=== PATIENT | male | born 1995 | race Caucasian/White ===

== ENCOUNTER 2017-07-11 23:08 | Emergency (ER) | payer OTHER ==
[2017-07-11 23:13] VITALS: O2SAT 98
--- NOTE | 2017-07-11 23:45 | EDPHY ---
General - History Smoking Status: Never smoked Narrative: CHIEF COMPLAINT: Left knee injury and pain HISTORY OF PRESENT ILLNESS: Patient complains of left knee pain. This started around 8:00 p.m.. He was playing football with some friends. He says he stepped awkwardly on the knee. He does not exactly know what happened to the knee, but since then he has had significant pain. Difficulty ambulating due to this. The pain is isolated to the medial joint line. Some paresthesia surrounding the injury. No paresthesia or anesthesia distally. No injury to the ipsilateral foot, heel or hip. No direct trauma. No laceration or puncture. History of sprain in this knee last year that required physical therapy. No other associated complaints or modifying factors. ESTABLISHED ORTHOPEDIST: None currently REVIEW OF SYSTEMS: Ten systems reviewed and are negative unless otherwise noted in the HPI PAST MEDICAL HISTORY: Insulin-dependent diabetic on pump PAST SURGICAL HISTORY: None SOCIAL HISTORY: Nonsmoker. 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 Originally from [place], [place] FAMILY HISTORY: Noncontributory EXAMINATION General Appearance: Alert, no distress Cardiovascular: Pulses normal throughout. Symmetric DP pulses 2+. Symmetric PT pulses 2+. Brisk cap refill Neurological: A&O, light sensation intact in the top of the feet. Ankle strength symmetric. No footdrop. Skin: Warm and dry, no rash. No lacerations. No abrasions. No contusions. Extremities: Tenderness over the left medial joint line of the knee. No crepitus. No patellar tenderness. Special test not performed due to pain. He is able to flex and extend the knee but without full extension. Neurovascular intact distally. DIFFERENTIAL DIAGNOSES: Including but not limited to tibial plateau fracture, sprain, strain, fibular fracture, patellar fracture MDM: 11:30 p.m. Acute left knee pain after an injury playing football this evening around 8:00 p.m.. Neuro intact distally with complains of paresthesia around the proximal fibular head. Difficulty with full extension of the knee. X-ray is pending. 11:45 p.m. X-ray as read by me reveals no obvious fracture dislocation. There may be a subtle tibial plateau depression. I will await the radiologist's interpretation. 11:50 p.m. I have read the x-ray with Dr. Pruett. We do not appreciate any acute findings. I have re-examined the patient. I have considered a knee immobilizer but this may be too painful for the patient. 11:56 p.m. X-ray has been read as negative by the radiologist. I have re-evaluated the patient and the knee immobilizer is too painful for him. Will take this off and put him in a Vaibhav wrap. He brought his own crutches. I recommend that he use these as needed. He is neuro intact distally. We discussed over-the- counter anti-inflammatories. We discussed outpatient follow-up with Orthopedics. Patient's mother is now bedside. I have answered all their questions. He is discharged home stable condition. ED Precautions: Worsening pain. Erythema, edema, cyanosis, pallor, paresthesia or anesthesia. (Rex Regalado) PHYSICIAN DOCUMENTATION: The patient was evaluated and managed by the Physician Retail Services Professional. My co- signature indicates that I have reviewed this chart and I agree with the findings and plan of care as documented. I am the secondary supervising physician. (Toña Pruett) - Diagnostics Imaging Results: Imaging Impressions Knee X-Ray 07/11/17 23:21 Impression: No definite fracture or joint effusion of the left knee. - Objective Vital Signs: Initial Vital Signs Temperature (C) 36.7 C 07/11/17 23:10 Heart Rate 91 07/11/17 23:10 Respiratory Rate 16 07/11/17 23:10 Blood Pressure 122/75 H 07/11/17 23:10 O2 Sat (%) 98 07/11/17 23:10 O2 Delivery Mode Room Air Allergies/Adverse Reactions: Penicillins Allergy (Verified 07/11/17 23:13) Home Medications: Medication Instructions Recorded Insulin Regular, Human 07/11/17 Hydrocodone/APAP 5/325 [West 1 - 2 tab PO Q4H PRN #13 tab 07/12/17 5/325 (*)] Departure - Departure Disposition: Home, Routine, Self-Care Clinical Impression: Left knee sprain Qualifiers: Encounter type: initial encounter Involved ligament of knee: unspecified ligament Qualified Code(s): S83.92XA - Sprain of unspecified site of left knee, initial encounter Condition: Good Instructions: Knee Sprain (ED) Additional Instructions: 1. Weightbearing as tolerated with light activity 2. [id number] anti-inflammatories as needed 3. Contact the on-call orthopedist as discussed 4. ED precautions as discussed Referrals: Shiv Durbin MD [Medical Doctor] - As per Instructions Prescriptions: Hydrocodone/APAP 5/325 [West 5/325 (*)] 1 - 2 tab PO Q4H PRN #13 tab PRN Reason: Pain, Moderate
[2017-07-12 00:32] VITALS: BP 129/66; PULSE 87; RESP 95; TEMP 97.9
== END 2017-07-12 00:31 | disposition home or self-care (01) ==
DX: S83.92XA Sprain of unspecified site of left knee, initial encounter (principal); E11.9 Type 2 diabetes mellitus without complications; Z79.4 Long term (current) use of insulin; X58.XXXA Exposure to other specified factors, initial encounter; Y99.8 Other external cause status; Y93.61 Activity, american tackle football

== ENCOUNTER 2017-09-08 20:13 | Emergency (ER) | payer OTHER ==
--- NOTE | 2017-09-08 21:16 | EDPHY ---
H & P Time Seen by Provider: 09/08/17 21:06 HPI/ROS: CHIEF COMPLAINT: The left leg pain HISTORY OF PRESENT ILLNESS: Slightly 22-year-old diabetic head ACL surgery done by Dr. Gillespie from [facility] medicine 1 week ago, presents with left knee swelling and pain in the proximal lower leg. Patient was doing well over the last 24 hr developed pain just distal to the knee with some swelling and bruising medially. No fever but had some subjective chills. No drainage from the wound. No proximal redness. REVIEW OF SYSTEMS: Eye: no change in vision ENT: no sore throat Cardiac: no chest pain or syncope Pulmonary: no cough or SOB Abdomen: no vomiting, diarrhea, abdominal pain Musculoskeletal: HPI Skin: HPI Neuro: no headache Constitutional: no fever but has felt a little bit chilled last couple days : no urinary symptoms A comprehensive 10 point review of systems is otherwise negative aside from elements mentioned in the history of present illness. PAST MEDICAL HISTORY: Insulin-dependent diabetes Social history: Here with his mother General Appearance: Alert and conversant, cooperative. Eyes: No scleral icterus. ENT, Mouth: Normal mucous membranes. Respiratory: Normal respiratory effort, breath sounds equal, lungs are clear to auscultation. Cardiovascular: Regular rate and rhythm. Gastrointestinal: Abdomen is soft and non tender. Neurological: Alert, face symmetric, normal motor and sensory in extremities. Skin: Patient has Steri-Strips but no drainage from the wound and no dehiscence. He has bruising around the surgery site as well as medially on the proximal lower leg. There is swelling around the entire knee but compartments of the thigh and lower leg are soft. Normal pulse and sensation in the foot on the left side and I can flex and extend his ankle without pain. Musculoskeletal: Swelling as documented just above. Psychiatric: Not agitated. Emergency Department course/MDM: Plan CBC sedimentation rate and CRP, ultrasound of the left leg to evaluate for DVT. Patient is afebrile. His leg is not warm to the touch and he does not have pus from the wound or proximal lymphangitis on examination. My suspicion for acute infection is low at this time. 2155: US negative for DVT per Asya. Results discussed with patient and parent at this time. 5: My desk EMT called the patient's surgical practice and was initially told they would not call the patient's surgeon or cognos consultant provider, even though they were informed 1 of their patients was in the emergency department. 2234: Phone discussion with Dr. Mazariegos for [facility], discussed full evaluation including database, recommends that we discharge him, no other diagnostics or therapeutics, will have him followup in clinic tomorrow. Smoking Status: Never smoked Constitutional: Initial Vital Signs Temperature (C) 36.8 C 09/08/17 20:17 Heart Rate 91 09/08/17 20:17 Respiratory Rate 18 09/08/17 20:17 Blood Pressure 132/65 H 09/08/17 20:17 O2 Sat (%) 96 09/08/17 20:17 O2 Delivery Mode Room Air Allergies/Adverse Reactions: amoxicillin Allergy (Verified 09/08/17 20:21) Penicillins Allergy (Verified 09/08/17 20:21) Home Medications: Medication Instructions Recorded Insulin Regular, Human 07/11/17 oxyCODONE CR 09/08/17 Medical Decision Making - Diagnostics Imaging Results: Imaging Impressions Extremity Venous Study 09/08/17 21:15 Impression: No sonographic evidence of deep vein thrombosis in the left lower extremity. Dr. Sky discussed these findings by telephone with JAYLIN PEREZ on 09/08/2017 at 21:56 hours. Differential Diagnosis: Differential considered including but not limited to cellulitis, septic joint, DVT, compartment syndrome, fasciitis. - Data Points Laboratory Results: Laboratory Results 09/08/17 21:23 09/08/17 21:23 09/08/17 09/08/17 21:23 21:23 WBC 6.88 10^3/uL 10^3/uL (3.80-9.50) RBC 4.92 10^6/uL 10^6/uL (4.40-6.38) Hgb 14.3 g/dL g/dL (13.7-17.5) Hct 40.8 % % (40.0-51.0) MCV 82.9 fL fL (81.5-99.8) MCH 29.1 pg pg (27.9-34.1) MCHC 35.0 g/dL g/dL (32.4-36.7) RDW 11.6 % % (11.5-15.2) Plt Count 303 10^3/uL 10^3/uL (150-400) MPV 8.6 fL L fL (8.7-11.7) Neut % (Auto) 52.8 % % (39.3-74.2) Lymph % (Auto) 35.3 % % (15.0-45.0) [place] % (Auto) 9.0 % % (4.5-13.0) Eos % (Auto) 2.2 % % (0.6-7.6) Baso % (Auto) 0.6 % % (0.3-1.7) Nucleat RBC Rel Count 0.0 % % (0.0-0.2) Absolute Neuts (auto) 3.63 10^3/uL 10^3/uL (1.70-6.50) Absolute Lymphs (auto) 2.43 10^3/uL 10^3/uL (1.00-3.00) Absolute Monos (auto) 0.62 10^3/uL 10^3/uL (0.30-0.80) Absolute Eos (auto) 0.15 10^3/uL 10^3/uL (0.03-0.40) Absolute Basos (auto) 0.04 10^3/uL 10^3/uL (0.02-0.10) Absolute Nucleated RBC 0.00 10^3/uL 10^3/uL (0-0.01) Immature Gran % 0.1 % % (0.0-1.1) Immature Gran # 0.01 10^3/uL 10^3/uL (0.00-0.10) ESR 11 MM/HR MM/HR (0-15) Sodium 138 mEq/L mEq/L (135-145) Potassium 4.2 mEq/L mEq/L (3.5-5.2) Chloride 99 mEq/L mEq/L (97-110) Carbon Dioxide 28 mEq/l mEq/l (22-31) Anion Gap 11 mEq/L mEq/L (8-16) BUN 19 mg/dL mg/dL (7-23) Creatinine 0.7 mg/dL mg/dL (0.7-1.3) Estimated GFR > 60 Glucose 205 mg/dL H mg/dL (70-100) Calcium 9.9 mg/dL mg/dL (8.5-10.4) C-Reactive Protein 34.1 mg/L H mg/L (<10.0) Departure - Departure Disposition: Home, Routine, Self-Care Clinical Impression: Leg pain, left Condition: Good Instructions: Pain Management After Surgery (DC) Additional Instructions: Discussed with Dr. Mazariegos; followup with Dr. Gillespie's office tomorrow. Ultrasound shows no DVT today. Referrals: Prince Gillespie MD [Medical Doctor] - 1 day without fail
[2017-09-08 21:29] LABS: PLATELET COUNT 303 10^3/uL (150-400)
[2017-09-08 22:20] VITALS: RESP 16
[2017-09-08 22:44] VITALS: BP 112/72; PULSE 74; TEMP 98.1; O2SAT 98
== END 2017-09-08 22:42 | disposition home or self-care (01) ==
DX: M79.605 Pain in left leg (principal); E11.9 Type 2 diabetes mellitus without complications; Z79.4 Long term (current) use of insulin